=== PATIENT | male | born 1955 | race Native Hawaiian/Other Pacific Islander ===

== ENCOUNTER 2018-01-03 03:26 | Emergency (ER) | payer OTHER ==
[~2018-01-03] VITALS: Ht 172.7 cm; Wt 89.8 kg
[~2018-01-03 03:26] MED LIST: GABA300C2 PO; TRAM50TA PO
[2018-01-03 05:55] VITALS: BP 142/84; TEMP 97.6
== END 2018-01-03 05:56 | disposition home or self-care (01) ==
LOC: ED 03:26
PROC: 3E1B78Z Irrigation of Ear using Irrigating Substance, Via Natural or Artificial Opening (ICD-10-PCS; principal; 2018-01-03)
DX: H92.02 Otalgia, left ear (principal); H61.22 Impacted cerumen, left ear
CPT/HCPCS: 99283; J1885

== ENCOUNTER 2019-02-18 05:01 | Emergency (ER) | payer OTHER ==
[~2019-02-18] VITALS: Ht 172.7 cm; Wt 88.5 kg
[2019-02-18 05:15] VITALS: TEMP 99.1
[2019-02-18 05:54] VITALS: BP 158/80
== END 2019-02-18 06:00 | disposition home or self-care (01) ==
LOC: ED 05:01
DX: M10.9 Gout, unspecified (principal)
CPT/HCPCS: 99283

== ENCOUNTER 2019-05-30 07:05 | Emergency (ER) | payer OTHER ==
[~2019-05-30] VITALS: Ht 172.7 cm; Wt 88.5 kg
[2019-05-30 07:09] VITALS: BP 176/90; TEMP 98.1
== END 2019-05-30 08:07 | disposition home or self-care (01) ==
LOC: ED 07:05
PROC: 2W3CX1Z Immobilization of Right Lower Arm using Splint (ICD-10-PCS; principal; 2019-05-30)
DX: G56.01 Carpal tunnel syndrome, right upper limb (principal)
CPT/HCPCS: 96372; 99282; J1885

== ENCOUNTER 2019-08-10 03:42 | Emergency (ER) | payer OTHER ==
[~2019-08-10] VITALS: Ht 172.7 cm; Wt 88.5 kg
[2019-08-10 03:50] VITALS: BP 157/83; TEMP 99.3
== END 2019-08-10 04:20 | disposition home or self-care (01) ==
LOC: ED 03:42
DX: M10.9 Gout, unspecified (principal)
CPT/HCPCS: 96372; 99282; J1885

== ENCOUNTER 2020-03-23 06:01 | Emergency (ER) | payer OTHER ==
[~2020-03-23] VITALS: Ht 172.7 cm; Wt 88.5 kg
[2020-03-23 06:51] LABS: PLATELET COUNT 270 K/uL (142-355)
[2020-03-23 07:09] LABS: POTASSIUM 4.2 mmol/L (3.6-5.2)
[2020-03-23 07:53] VITALS: BP 129/67; TEMP 98
== END 2020-03-23 07:53 | disposition home or self-care (01) ==
LOC: ED 06:01
PROVIDERS: Family Medicine
DX: M10.9 Gout, unspecified (principal); R73.9 Hyperglycemia, unspecified
CPT/HCPCS: 80053; 84550; 85007; 85027; 96374; 96375; 99284; J1885; J2930

== ENCOUNTER 2021-02-05 01:19 | Emergency (ER) | payer OTHER ==
[~2021-02-05] VITALS: Ht 172.7 cm; Wt 83.9 kg
[2021-02-05 02:52] VITALS: BP 157/90; TEMP 97.9
== END 2021-02-05 02:53 | disposition home or self-care (01) ==
LOC: ED 01:19
DX: M10.9 Gout, unspecified (principal); M79.671 Pain in right foot
CPT/HCPCS: 96372; 99283; J1885

== ENCOUNTER 2021-12-26 08:49 | Outpatient (CLI) | payer OTHER | END 2021-12-26 20:48 | disposition home or self-care (01) | LOC: CT 08:49 | PROVIDERS: ATTEND Nurse Practitioner Primary Care | DX: Z77.090 Contact with and (suspected) exposure to asbestos (principal); R91.8 Other nonspecific abnormal finding of lung field ==